=== PATIENT | female | born 1990 | race American Indian/Alaskan Native ===

== ENCOUNTER 2018-11-17 17:43 | Inpatient (IN) | payer MEDICAID ==
[2018-11-17] MEDS ORDERED: BRETHINE SUB-Q PRN ×2 (18:23→19:48)
[2018-11-17] MEDS ORDERED: BRETHINE IVP PRN ×2 (18:23→19:48)
[2018-11-17] MEDS ORDERED: XYLOCAINE 2% INFILTRATI ONE ×2 (18:23→19:48)
[2018-11-17] MEDS ORDERED: MINERAL OIL PO PRN ×2 (18:23→19:48)
[2018-11-17] MEDS ORDERED: PITOCin/NS 30 UNIT/500ML 30 UNITS/500 ML BAG IV SCH ×4 (19:00→20:00)
[2018-11-17] MEDS ORDERED: LACTATED RINGERS 1,000 ML IV SCH ×2 (19:00→21:00)
[2018-11-17] MEDS ORDERED: PITOCin/NS 20 UNIT/1000ML DRIP 20 UNITS/1,000 ML BAG IV SCH ×3 (19:00→23:00)
[2018-11-17 19:44] LABS: Hematocrit 35.2 % (30.3-42.9); Hemoglobin 11.7 gm/dl (10.1-14.3); Mean Corpuscular HGB Conc 33 % (30-34); Mean Corpuscular Volume 92 fl (79-97); Platelet Count 243 K/mm3 (140-440); Red Blood Count 3.84 M/mm3 (3.65-5.03); Red Cell Distribution Width 15.1 % (13.2-15.2)
[2018-11-17] MEDS ORDERED: STADOL IV PRN (19:48)
[2018-11-17] MEDS ORDERED: SUBLIMAZE IV PRN (19:48)
[2018-11-17] MEDS ORDERED: ZOFRAN IV PRN ×2 (19:48→22:21)
--- NOTE | 2018-11-17 19:56 | History and Physical Report ---
History of Present Illness Date of examination: 11/17/18 Chief complaint: Labor History of present illness: Pt is a 28yo BF EDC 12/01/18; EGA 38 0/7 weeks presents to L&D complaining of RUC's q 3-4 mins. She received late at [facility] since 20 weeks, but only 2 visits noted. course has been unremarkable. records are available, but GBS is unknown. Past History Past Medical History: no pertinent history Past Surgical History: no surgical history Social history: no significant social history, single - Obstetrical History Expected Date of Delivery: 12/01/18 Actual Gestation: 38 Week(s) 0 Day(s) : 2 Medications and Allergies Allergies Allergy/AdvReac Type Severity Reaction Status Date / Time No Known Allergies Allergy Verified 11/17/18 18:11 Active Meds: Active Medications Ephedrine Sulfate (Ephedrine Sulfate) 10 mg IV Q2M PRN PRN Reason: Hypotension Oxytocin/Sodium Chloride (Pitocin/Ns 20 Unit/1000ml Drip) 20 units in 1,000 mls @ 125 mls/hr IV DIRECT CHRISTINE Oxytocin/Sodium Chloride (Pitocin/Ns 30 Unit/500ml) 30 units in 500 mls @ 1 mls/hr IV TITR CHRISTINE; Protocol Oxytocin/Sodium Chloride (Pitocin/Ns 30 Unit/500ml) 30 units in 500 mls @ 2 mls/hr IV TITR CHRISTINE; Protocol Lactated Ringer's (Lactated Ringers) 1,000 mls @ 125 mls/hr IV DIRECT CHRISTINE Mineral Oil (Mineral Oil) 30 ml PO QHS PRN PRN Reason: Constipation Terbutaline Sulfate (Brethine) 0.25 mg SUB-Q ONCE PRN PRN Reason: Hyperstimulation/Hypertonicity Terbutaline Sulfate (Brethine) 0.25 mg IVP ONCE PRN PRN Reason: Hyperstimulation/Hypertonicity Review of Systems All systems: negative - Vital Signs Vital signs: Vital Signs Pulse BP 78 111/69 11/17/18 18:08 11/17/18 18:08 Temp Pulse Resp BP Pulse Ox 98.7 F 81 123/74 11/17/18 18:27 11/17/18 19:08 11/17/18 19:08 - Physical Exam Breasts: Positive: deferred Cardiovascular: Regular rate Lungs: Positive: Clear to auscultation Abdomen: Positive: normal appearance Genitourinary (Female): Positive: normal external genitalia Uterus: Positive: enlarged Extremities: Positive: normal - Obstetrical FHR: category 1 Uterine Contraction Monitor Mode: External Cervical Dilatation: 5 (per nurse) Cervical Effacement Percentage: 80 (per nurse) station: -2 Uterine Contraction Pattern: Regular Uterine Tone Measurement Phase: Contraction Uterine Contraction Intensity: Moderate Results Result Diagrams: 11/17/18 19:29 Abnormal lab results 11/17/18 Range/Units 19:29 WBC 12.2 H (4.5-11.0) K/mm3 All other labs normal. Assessment and Plan - Patient Problems (1) 38 weeks gestation of Onset Date: 11/17/18 Current Visit: Yes Status: Acute Plan to address problem: A: IUP @ 38 0/7 weeks in labor Unknown GBS P: Admit to L&D for expectant vaginal delivery IV Ampicillin
[2018-11-17] MEDS ORDERED: AMPICILLIN/NS 2 GM/100 ML 2 GM/100 ML BAG IV ONE (19:57)
--- NOTE | 2018-11-17 22:20 | Procedure Note ---
OB Delivery Note - Delivery Date of Delivery: 11/17/18 Surgeon: AMY HUNTER Estimated blood loss: 100cc - Vaginal Delivery presentation: vertex Delivery position: OA Intrapartum events: PROM->1hr before delivery Delivery induction: none Delivery augmentation: pitocin Delivery monitor: external FHT, external uterine Route of delivery: Delivery placenta: spontaneous Delivery cord: nuchal cord (x1), 3 umbilical vessels Episiotomy: none Delivery laceration: none Anesthesia: none Delivery comments: delivered OA and placed on Mom's chest for [id number] bonding and delayed cord clamping, cut by Dad - Infant A at 1 minute: 8 at 5 minutes: 9 Infant Gender: Female (2742gms)
[2018-11-17] MEDS ORDERED: BENADRYL PO PRN (22:21)
[2018-11-17] MEDS ORDERED: PHENERGAN PR PRN (22:21)
[2018-11-17] MEDS ORDERED: PHENERGAN PO PRN (22:21)
[2018-11-17] MEDS ORDERED: TYLENOL PO PRN (22:21)
[2018-11-17] MEDS ORDERED: NORCO 5/325 PO PRN (22:21)
[2018-11-17] MEDS ORDERED: MILK OF MAGNESIA PO PRN (22:21)
[2018-11-17] MEDS ORDERED: LANSINOH TP PRN (22:21)
[2018-11-17] MEDS ORDERED: TUCKS PAD TP PRN (22:21)
[2018-11-17] MEDS ORDERED: DULCOLAX PR PRN (22:21)
[2018-11-17] MEDS ORDERED: SODIUM CHLORIDE FLUSH SYRINGE 10 ML IV PRN (23:00)
[2018-11-17] MEDS: IBUPROFEN PO SCH (23:39)
[2018-11-17] MEDS ORDERED: AMPICILLIN/NS 1 GM/50 ML 1 GM/50 ML BAG IV SCH (23:49)
[2018-11-18] MEDS: SENOKOT S PO SCH ×4 (00:55→23:55)
[2018-11-18] MEDS: IBUPROFEN PO SCH ×5 (06:20→23:55)
[2018-11-18] MEDS: FEOSOL PO SCH ×2 (09:39→23:56)
[2018-11-18] MEDS: PRENATAL VITAMIN PO SCH (09:39)
--- NOTE | 2018-11-18 10:54 | Progress Note ---
Assessment and Plan - Patient Problems (1) 38 weeks gestation of Onset Date: 11/17/18 Current Visit: Yes Status: Resolved (2) (normal spontaneous vaginal delivery) Onset Date: 11/18/18 Current Visit: Yes Status: Resolved Plan to address problem: A: S/P - PPD #1 Doing well Asymptomatic anemia - stable P: May go home tomorrow. Subjective - Subjective Date of service: 11/18/18 Principal diagnosis: s/p - PPD #1 Interval history: Pt is feeling well without complaints. Bleeding improved. Patient reports: appetite normal, voiding normally, pain well controlled, flatus, ambulating normally, no dizzy ambulation, no nauseated [place]: doing well, bottle feeding Objective - Vital Signs Latest vital signs: Vital Signs Temp Pulse Resp BP BP 11/18/18 04:59 98.0 F 16 101/52 11/18/18 04:00 98.7 F 77 18 108/67 11/18/18 00:50 98.1 F 77 18 105/52 11/17/18 23:55 84 116/61 11/17/18 23:41 98.2 F 18 11/17/18 23:40 88 118/59 11/17/18 23:39 18 11/17/18 23:25 91 H 117/69 11/17/18 23:10 81 110/71 11/17/18 22:56 75 110/61 11/17/18 22:40 86 127/58 11/17/18 22:25 90 137/61 11/17/18 21:45 85 121/76 11/17/18 21:00 97.8 F 18 11/17/18 20:58 79 129/74 11/17/18 20:28 80 127/75 11/17/18 19:59 72 137/83 11/17/18 19:08 81 123/74 11/17/18 18:27 98.7 F 78 111/69 11/17/18 18:08 78 111/69 Intake and Output 11/17/18 11/18/18 11/18/18 22:59 06:59 14:59 Intake Total 240 Balance 240 Intake: Intake, Free Water 240 Other: # Voids Void 1 Weight 74.843 kg Estimated Blood Loss 100 - Exam Breasts: Present: deferred Abdomen: Present: normal appearance, soft Uterus: Present: normal, firm, fundal height below umbilicus Extremities: Present: normal - Labs Labs: Abnormal lab results 11/17/18 Range/Units 19:29 WBC 12.2 H (4.5-11.0) K/mm3 Laboratory Tests 11/17/18 11/17/18 11/17/18 19:29 19:29 19:29 WBC 12.2 H RBC 3.84 Hgb 11.7 Hct 35.2 MCV 92 MCH 31 MCHC 33 RDW 15.1 Plt Count 243 RPR Nonreactive Blood Type O POSITIVE Antibody Screen Negative 11/18/18 10:22 WBC RBC Hgb 10.4 Hct 30.8 MCV MCH MCHC RDW Plt Count RPR Blood Type Antibody Screen
[2018-11-18 10:59] LABS: Hematocrit 30.8 % (30.3-42.9); Hemoglobin 10.4 gm/dl (10.1-14.3)
[2018-11-18] MEDS ORDERED: M-M-R II VACCINE SUB-Q ONE (22:21)
[2018-11-19] MEDS ORDERED: BOOSTRIX IM ONE (06:00)
--- NOTE | 2018-11-19 09:56 | Discharge Summary ---
Providers - Providers Date of Admission: 11/17/18 19:58 Date of discharge: 11/19/18 Attending physician: AMY HUNTER Primary care physician: AMY HUNTER Hospitalization Reason for admission: active labor, rupture of membranes, IUP at term Delivery: Episiotomy: none Laceration: none Other procedures: none complications: none Discharge diagnosis: IUP at term delivered Allison baby: female Hospital course: Unremarkable. Condition at discharge: Good Disposition: DC-01 TO HOME OR SELFCARE - Discharge Diagnoses (1) 38 weeks gestation of Status: Resolved (2) (normal spontaneous vaginal delivery) Status: Resolved Plan - Discharge Medications Prescriptions: Ferrous Sulfate [Feosol 325 MG tab] 325 mg PO BID #60 tablet Ibuprofen [Motrin 600 MG tab] 600 mg PO Q6HR #30 tablet Vit-Fe Fumar-FA [ Vitamin] 1 each PO QDAY #30 tablet - Provider Discharge Summary Activity: routine, no sex for 6 weeks, no heavy lifting 4 weeks, no strenuous exercise Diet: routine Instructions: routine Additional instructions: [] Smoking cessation referral if applicable(refer to patient education folder for contact #) [] Refer to [facility] Booklet Call your doctor immediately for: * Fever > 100.5 * Heavy vaginal bleeding ( >1 pad per hour) * Severe persistent headache * Shortness of breath * Reddened, hot, painful area to leg or breast * Drainage or odor from incision. * Keep incision clean and dry at all times and follow doctor's instructions regarding bathing/showering - Follow up plan Follow up: AMY HUNTER MD [Primary Care Provider] - 6 Weeks STEFANO SAAB CNM [Advanced Practice Nurse] - 6 Weeks
[2018-11-19] MEDS: FEOSOL PO SCH (10:30)
[2018-11-19] MEDS: PRENATAL VITAMIN PO SCH (10:30)
[2018-11-19] MEDS: SENOKOT S PO SCH (10:30)
[2018-11-19] MEDS: IBUPROFEN PO SCH (12:53)
[2018-11-19 16:59] VITALS: BP 113/59
== END 2018-11-19 17:06 | disposition home or self-care (01) | DRG 775 ==
LOC: TRG 17:43 → LD 19:58 → OB 11-18 00:40
PROVIDERS: ADMIT Obstetrics & Gynecology; ATTEND Obstetrics & Gynecology
PROC: 10E0XZZ Delivery of Products of Conception, External Approach (ICD-10-PCS; principal; 2018-11-17)
DX: O42.02 Full-term premature rupture of membranes, onset of labor within 24 hours of rupture (principal); O69.81X0 Labor and delivery complicated by cord around neck, without compression, not applicable or unspecified; Z3A.38 38 weeks gestation of pregnancy; Z37.0 Single live birth; O90.81 Anemia of the puerperium; D64.9 Anemia, unspecified
CPT/HCPCS: 36415; 85014; 85018; 85027; 86592; 86850; 86900; 86901; 96365; G0378; J0290; J2405; J2590; J3010; J7120

== ENCOUNTER 2021-10-10 18:12 | Inpatient (IN) | payer MEDICAID ==
[2021-10-10] MEDS ORDERED: AMPICILLIN/NS 2 GM/100 ML 2 GM/100 ML BAG IV ONE (19:13)
[2021-10-10] MEDS ORDERED: BUTORPHANOL 2 MG/1 ML INJ IV PRN (19:13)
[2021-10-10] MEDS ORDERED: LOPERAMIDE 2 MG CAP PO PRN (19:13)
[2021-10-10] MEDS ORDERED: MINERAL OIL 30 ML ORAL LIQD PO PRN (19:13)
[2021-10-10] MEDS ORDERED: TERBUTALINE 1 MG/1 ML INJ SUB-Q PRN (19:13)
[2021-10-10] MEDS ORDERED: CARBOPROST TROMETHAMINE 250 MCG/1 ML INJ IM PRN (19:13)
[2021-10-10] MEDS ORDERED: LIDOCAINE (2%) 20 MG/1 ML VIAL 20 ML MDV INFILTRATI ONE ×2 (19:13→19:16)
[2021-10-10] MEDS ORDERED: OXYTOCIN 10 UNIT/1 ML INJ IM PRN (19:13)
[2021-10-10] MEDS ORDERED: ePHEDrine SULFATE 50 MG/1 ML INJ IV PRN (19:13)
[2021-10-10] MEDS ORDERED: miSOPROStol 200 MCG TAB PR PRN (19:13)
[2021-10-10] MEDS ORDERED: ACETAMINOPHEN 325 MG TAB PO PRN ×2 (19:13→23:22)
[2021-10-10] MEDS ORDERED: fentaNYL 100 MCG/2 ML INJ IV PRN (19:13)
[2021-10-10] MEDS ORDERED: METHYLERGONOVINE MALEATE 0.2 MG/ML VIAL IM PRN (19:13)
[2021-10-10] MEDS ORDERED: LACTATED RINGERS 1,000 ML ONE (19:15)
[2021-10-10] MEDS ORDERED: LACTATED RINGERS 1,000 ML IV SCH (19:15)
[2021-10-10] MEDS ORDERED: OXYTOCIN DRIP 30,000 MILLIUNITS/500 ML BAG IV ONE (19:15)
[2021-10-10] MEDS ORDERED: MINERAL OIL 30 ML ORAL LIQD ONE (19:16)
--- NOTE | 2021-10-10 19:24 | History and Physical Report ---
History of Present Illness Date of examination: 10/10/21 Chief complaint: Labor History of present illness: This is a patient of [facility] who presented in Labor b/c this facility was closer to her location. No records are available. Patient states he SRIRAM 10/14/2021, she was last evaluated at [facility] 10/01/21, she was 1cm dilated. States she GBS is negative. She is not 8.5/100/-2, intact membranes. 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: chlamydia, gonorrhea, hepatitis B, hepatitis C, herpes, HIV, syphilis - Obstetrical History Expected Date of Delivery: 10/14/21 Actual Gestation: 39 Week(s) 3 Day(s) : 2 Para: 1 Number of Living Children: 1 Medications and Allergies Allergies Allergy/AdvReac Type Severity Reaction Status Date / Time No Known Allergies Allergy Verified 11/17/18 18:11 Home Medications Medication Instructions Recorded Confirmed Last Taken Type Ferrous Sulfate [Feosol 325 MG tab] 325 mg PO BID #60 tablet 11/19/18 Unknown Rx Ibuprofen [Motrin 600 MG tab] 600 mg PO Q6HR #30 tablet 11/19/18 Unknown Rx Vit-Fe Fumar-FA [ 1 each PO QDAY #30 tablet 11/19/18 Unknown Rx Vitamin] - Vital Signs Vital signs: Vital Signs Pulse BP 87 118/73 10/10/21 19:02 10/10/21 19:02 Temp Pulse Resp BP Pulse Ox 87 118/73 10/10/21 19:02 10/10/21 19:02 - Physical Exam Breasts: Positive: deferred Cardiovascular: Regular rate Lungs: Positive: Normal air movement Abdomen: Positive: normal appearance, soft. Negative: distention, tenderness, guarding Genitourinary (Female): Positive: normal external genitalia, normal perenium Vulva: both: normal Uterus: Positive: enlarged. Negative: tender Anus/Rectum: Positive: normal perianal skin Extremities: Positive: normal. Negative: tenderness, edema - Obstetrical FHR: category 1 Uterine Contraction Monitor Mode: External Cervical Dilatation: 8.5 Cervical Effacement Percentage: 100 station: -2 Uterine Contraction Pattern: Irregular Results All other labs normal. Assessment and Plan Call [facility] to obtain labs and PNR, waiting for return call from provider - Patient Problems (1) 39 weeks gestation of Current Visit: Yes Status: Acute (2) Active labor at term Current Visit: Yes Status: Acute
[2021-10-10] MEDS ORDERED: OXYTOCIN DRIP 30 UNITS/500 ML BAG IV SCH ×3 (20:00→23:22)
[2021-10-10] MEDS ORDERED: miSOPROStol 25 MCG TAB VG ONE (20:00)
[2021-10-10] MEDS ORDERED: AMPICILLIN/NS 1 GM/50 ML 1 GM/50 ML BAG IV SCH (20:00)
[2021-10-10 20:07] LABS: Hematocrit 28.5 % (30.3-42.9); Hemoglobin 9.3 gm/dl (10.1-14.3); Mean Corpuscular HGB Conc 33 % (30-34); Mean Corpuscular Volume 81 fl (79-97); Platelet Count 239 K/mm3 (140-440); Red Blood Count 3.52 M/mm3 (3.65-5.03); Red Cell Distribution Width 16.6 % (13.2-15.2)
[2021-10-10 20:18] LABS: Amphetamine Screen,Urine Negative; Benzodiazepines Screen,Urine Negative; Cannabinoid Screen,Urine Negative; Cocaine Screen,Urine Negative; Methadone Screen,Urine Negative; Opiate Screen,Urine Negative
[2021-10-10 20:34] LABS: Hepatitis C Virus Antibody Non-Reactive (NonReactive)
--- NOTE | 2021-10-10 20:36 | Procedure Note ---
OB Delivery Note - Delivery Date of Delivery: 10/10/21 Surgeon: SAMIR MALDONADO Estimated blood loss: other (250mL) - Vaginal Delivery presentation: vertex Delivery position: OA Delivery induction: none Delivery monitor: none Route of delivery: Delivery placenta: spontaneous (intact) Episiotomy: none Delivery laceration: other (perineual abrasion, hemostatic, no repair required) Anesthesia: none - A at 1 minute: 8 at 5 minutes: 9 (8lb 11oz) Infant Gender: Male
[2021-10-10] MEDS ORDERED: IBUPROFEN 800 MG TAB PO ONE (22:49)
[2021-10-10] MEDS ORDERED: ONDANSETRON 4 MG/2 ML INJ IV PRN (23:22)
[2021-10-10] MEDS ORDERED: MAGNESIUM HYDROXIDE (MOM) ORAL LIQD UDC PO PRN (23:22)
[2021-10-10] MEDS ORDERED: LANOLIN/ZINC/DIMETHICONE (LANSINOH) 7 GM TP PRN (23:22)
[2021-10-10] MEDS ORDERED: DOCUSATE SODIUM 100 MG CAP PO PRN (23:22)
[2021-10-10] MEDS ORDERED: diphenhydrAMINE 25 MG CAP PO PRN (23:22)
[2021-10-10] MEDS ORDERED: SENNOSIDES/DOCUSATE SODIUM 8.6/50 MG TAB PO SCH (23:22)
[2021-10-10] MEDS ORDERED: WITCH HAZEL/ GLYCERIN PAD TP PRN (23:22)
[2021-10-10] MEDS ORDERED: PROMETHAZINE 25 MG RECT SUPP PR PRN (23:22)
[2021-10-10] MEDS ORDERED: PROMETHAZINE 25 MG TAB PO PRN (23:22)
[2021-10-10] MEDS ORDERED: SENNOSIDES/DOCUSATE SODIUM 8.6/50 MG TAB PO PRN (23:45)
[2021-10-11] MEDS ORDERED: TETANUS,DIPH,PERTUSS(ACELL) VACCINE 0.5 ML SYRINGE IM ONE (06:00)
[2021-10-11] MEDS: IBUPROFEN 600 MG TAB PO SCH ×4 (06:07→21:21)
--- NOTE | 2021-10-11 09:21 | Progress Note ---
Assessment and Plan - Patient Problems (1) (normal spontaneous vaginal delivery) Onset Date: 11/18/18 Current Visit: No Status: Resolved Plan to address problem: Will continue pathway Probable allow home tomorrow with baby (2) 39 weeks gestation of Current Visit: Yes Status: Acute (3) Active labor at term Current Visit: Yes Status: Acute Subjective - Subjective Date of service: 10/11/21 Principal diagnosis: PPD#1 , No records available Interval history: This is a patient of [facility] who presented in Labor b/c this facility was closer to her location. No records are available. Patient states he SRIRAM 10/14/2021, she was last evaluated at [facility] 10/01/21, she was 1cm dilated. States she GBS is negative. She is not 8.5/100/-2, intact membranes. Patient reports: appetite normal, voiding normally, pain well controlled, ambulating normally Objective - Vital Signs Latest vital signs: Vital Signs Temp Pulse Resp BP BP Pulse Ox Pulse Ox 10/11/21 07:51 98 10/11/21 06:05 98 10/11/21 03:15 98 10/11/21 01:40 98 10/11/21 00:10 98 10/10/21 23:05 99.0 F 62 18 117/55 97 98 10/10/21 22:23 72 130/59 10/10/21 22:09 91 H 106/58 10/10/21 21:53 76 119/58 10/10/21 21:38 76 116/60 10/10/21 21:23 77 123/60 10/10/21 21:08 73 125/63 10/10/21 20:53 122/68 10/10/21 20:38 85 123/58 10/10/21 20:28 83 125/58 10/10/21 20:22 90 100 10/10/21 20:17 77 100 10/10/21 20:12 71 99 10/10/21 20:07 68 99 10/10/21 20:02 82 100 10/10/21 19:57 66 100 10/10/21 19:52 69 100 10/10/21 19:47 71 100 10/10/21 19:42 88 100 10/10/21 19:37 95 H 98 10/10/21 19:30 98.3 F 18 07/23/22 19:21 98 10/10/21 19:02 87 118/73 Intake and Output 10/10/21 10/11/21 10/11/21 22:59 06:59 14:59 Intake Total 120 Output Total 650 Balance -530 Intake: Oral 120 Output: Urine 650 Void 650 Other: Total, Intake Amount 120 Total, Output Amount 400 # Voids Void 1 Weight 68.946 kg Estimated Blood Loss 250 - Exam Breasts: Present: normal, . Absent: discharge, pain, skin changes, tender, engorged Lungs: Present: Normal air movement Abdomen: Present: normal appearance, soft. Absent: distention, tenderness, guarding Uterus: Present: firm, fundal height below umbilicus. Absent: tenderness Extremities: Present: normal. Absent: tenderness, edema - Labs Labs: Abnormal lab results 10/10/21 Range/Units 19:40 WBC 11.5 H (4.5-11.0) K/mm3 RBC 3.52 L (3.65-5.03) M/mm3 Hgb 9.3 L (10.1-14.3) gm/dl Hct 28.5 L (30.3-42.9) % MCH 26 L (28-32) pg RDW 16.6 H (13.2-15.2) %
[2021-10-11] MEDS ORDERED: PRENATAL VIT27-FE FUMARATE-FOLIC ACID VIT TAB PO SCH (10:00)
[2021-10-11 10:08] LABS: Hematocrit 28.1 % (30.3-42.9); Hemoglobin 8.8 gm/dl (10.1-14.3)
[2021-10-12] MEDS: IBUPROFEN 600 MG TAB PO SCH ×2 (00:10→05:52)
--- NOTE | 2021-10-12 08:36 | Discharge Summary ---
Providers - Providers Date of Admission: 10/10/21 19:13 Date of discharge: 10/12/21 Attending physician: SAMIR MALDONADO 10/10/21 23:22 Consult to Property Claim Rep [CONS] Routine Reason For Exam: assistance with , SNS Primary care physician: SAMIR MALDONADO Hospitalization Reason for admission: active labor, IUP at term Delivery: Procedure details: SEE DELIVERY NOTES Episiotomy: other (SEE DELIVERY NOTES) Laceration: other (SEE DELIVERY NOTES) Other procedures: none complications: none Discharge diagnosis: IUP at term delivered Hospital course: Pt admitted in active labor and had that was not complicated. pt had routine pp care that was not complicated She will be d/c home today. Condition at discharge: Good Disposition: 01 HOME / SELF CARE / HOMELESS Plan - Discharge Medications Prescriptions: Lidocain2.5%/Prilocai2.5% [Emla] 5 gm TP ONCE #1 tube Ferrous Sulfate [Feosol 325 MG tab] 325 mg PO BID #90 tablet - Provider Discharge Summary Activity: routine, no sex for 6 weeks, no heavy lifting 4 weeks Diet: routine Instructions: routine Additional instructions: [] Smoking cessation referral if applicable(refer to patient education folder for contact #) [] Refer to [facility] Booklet Call your doctor immediately for: * Fever > 100.5 * Heavy vaginal bleeding ( >1 pad per hour) * Severe persistent headache * Shortness of breath * Reddened, hot, painful area to leg or breast * Drainage or odor from incision. * Keep incision clean and dry at all times and follow doctor's instructions regarding bathing/showering Please make apt to f/u with regular ob. - Follow up plan Follow up: SAMIR MALDONADO MD [Primary Care Provider] - 7 Days
[2021-10-12 13:41] VITALS: BP 109/68
== END 2021-10-12 14:10 | disposition home or self-care (01) | DRG 775 ==
LOC: APU 18:12 → TRG 18:12 → LD 19:13 → OB 23:00
PROVIDERS: ADMIT Obstetrics & Gynecology; ATTEND Obstetrics & Gynecology
PROC: 10E0XZZ Delivery of Products of Conception, External Approach (ICD-10-PCS; principal; 2021-10-10)
PROC: 3E0234Z Introduction of Serum, Toxoid and Vaccine into Muscle, Percutaneous Approach (ICD-10-PCS; 2021-10-11)
DX: O80 Encounter for full-term uncomplicated delivery (principal); Z37.0 Single live birth; Z3A.39 39 weeks gestation of pregnancy; Z20.822 Contact with and (suspected) exposure to COVID-19; Z23 Encounter for immunization
CPT/HCPCS: 36415; 80307; 85014; 85018; 85027; 86592; 86706; 86762; 86803; 86850; 86900; 86901; 87806; 88307; 96360; 96365; G0378; J2590; J7120; U0003